=== PATIENT | male | born 1980 | race Caucasian/White ===

== ENCOUNTER 2019-09-25 15:31 | Outpatient (CLI) | payer OTHER ==
--- NOTE | 2019-09-25 16:39 | MRI ---
MRI OF THE RIGHT LONG FINGER WITHOUT CONTRAST: 09/25/19 INDICATION: Concern for collateral ligament injury to the right long finger after jamming the right finger while playing basketball. FINDINGS: No acute fracture is evident. There is a moderate joint effusion involving the long finger metacarpop halangeal joint. There are small marginal osteophytes affecting the head of the long finger metacarpo phalangeal joint. The visualized volar plate appears intact. The collateral ligaments of the metacarp ophalangeal joint appear intact. The extensor and flexor tendons are intact. IMPRESSION: 1. Moderate posttraumatic joint effusion involving the long finger metacarpophalangeal joint. 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 2. Visualized collateral ligaments appear intact. The visualized flexor and extensor tendons of third digit appears intact. POS: [facility]
== END 2019-09-25 15:32 | disposition home or self-care (01) ==
LOC: TBSIIMAG 15:31
PROVIDERS: ATTEND Orthopaedic Surgery Hand Surgery
DX: S69.91XA Unspecified injury of right wrist, hand and finger(s), initial encounter (principal); M18.11 Unilateral primary osteoarthritis of first carpometacarpal joint, right hand; M25.441 Effusion, right hand